=== PATIENT | male | born 1995 | race Caucasian/White ===

== ENCOUNTER → 2021-01-20 | Day surgery (SDC) | payer BC, OTHER ==
[~2021-01-20] MED LIST: ACETAMINOPHEN 1000 MG/100 ML 100 ML IV ONE; BUPIVACAINE HCL 0.5% INJ 30 ML VIAL INJ ONE; DEXAMETHASONE SOD PHOS INJ 4 MG/ML SDV ONE; NAPROXEN250 MG PO; SODIUM CHLORIDE 0.9% 50ML 50 ML ONE
[2021-01-20 14:10] VITALS: BP 125/79
== END | disposition home or self-care (01) ==
LOC: OR 10:07
PROVIDERS: ATTEND Podiatrist Foot & Ankle Surgery
DX: M25.872 Other specified joint disorders, left ankle and foot (principal); E66.01 Morbid (severe) obesity due to excess calories; Z01.812 Encounter for preprocedural laboratory examination; Z20.822 Contact with and (suspected) exposure to COVID-19
CPT/HCPCS: 28120; J0131; J0690; J1100; U0002